=== PATIENT | female | born 1995 ===

== ENCOUNTER 2019-02-28 15:00 | Emergency (ER) | payer OTHER ==
[2019-02-28] MEDS ORDERED: Tetan/Diph/Pertus SYR(Tdap)* 0.5 ML SYR(BOOSTRIX) use SYR IM ONE (15:14)
--- NOTE | 2019-02-28 15:37 | ED ---
Laceration/Wound HPI - HPI Summary HPI Summary: This patient is a 23 year old female presenting to [facility] with a chief complaint of finger laceration one hour ago. The patient was connecting a trailer hitch to a truck when it closed down suddenly and pinched the distal pad of fourth digit on her left hand. The patient reports pain and laceration in this finger. She reports her pain 5/10 in severity. - History of Current Complaint Stated Complaint: LEFT FINGER LAC PER EMS Time Seen by Provider: 02/28/19 15:12 Hx Obtained From: Patient Mechanism of Injury: Sharp/Blunt Trauma Onset/Duration: Lasting Hours Aggravating: Movement Onset Severity: Moderate Current Severity: Moderate Pain Intensity: 5 Pain Scale Used: 0-10 Numeric Associated Signs & Symptoms: Negative - Allergy/Home Medications Allergies/Adverse Reactions: Allergies Allergy/AdvReac Type Severity Reaction Status Date / Time No Known Allergies Allergy Verified 02/28/19 15:04 PMH/Surg Hx/FS Hx/Imm Hx Endocrine/Hematology History: Denies: Hx Anticoagulant Therapy Cardiovascular History: Denies: Hx Coronary Artery Disease Respiratory History: Denies: Hx Asthma History: Denies: Hx Dialysis Sensory History: Denies: Hx Eye Prosthesis Opthamlomology History: Denies: Hx Legally Blind EENT History: Denies: Hx Deafness Neurological History: Denies: Hx Developmental Delay Psychiatric History: Denies: Hx Autism Infectious Disease History: No Infectious Disease History: Denies: Traveled Outside the [place] in Last 30 Days - Family History Known Family History: Positive: Non-Contributory - Social History Alcohol Use: Occasionally Substance Use Type: Reports: None Smoking Status (MU): Never Smoked Tobacco Review of Systems Constitutional: Negative Eyes: Negative ENT: Negative Cardiovascular: Negative Respiratory: Negative Gastrointestinal: Negative Genitourinary: Negative Positive: Other - 4th digit on left hand pain. Positive: Other - Laceration on fourth digit of left hand. Neurological: Negative Psychological: Normal All Other Systems Reviewed And Are Negative: Yes Physical Exam - Summary Physical Exam Summary: Degloving of the dorsal surface of the pad of the fourth digit of the left hand. Patient is neurovascularly intact distally. Flexion intact at each individual joint of this finger. Nail bed intact. Visible disturbance of the pulp. Triage Information Reviewed: Yes Vital Signs On Initial Exam: Initial Vitals Temp Pulse Resp BP Pulse Ox 96.8 F 74 16 127/81 100 02/28/19 15:02 02/28/19 15:02 02/28/19 15:02 02/28/19 15:02 02/28/19 15:02 Vital Signs Reviewed: Yes Appearance: Positive: Well-Appearing - Patient lying in bed comfortably in no pain distress. Friend present, No Pain Distress Skin: Positive: Warm, Dry Head/Face: Positive: Normal Head/Face Inspection Eyes: Positive: Normal, EOMI ENT: Positive: Normal ENT inspection Neck: Positive: Supple, Nontender Respiratory/Lung Sounds: Positive: Clear to Auscultation Cardiovascular: Positive: Normal Abdomen Description: Positive: Nontender Neurological: Positive: Normal, Sensory/Motor Intact Psychiatric: Positive: Normal, Affect/Mood Appropriate - Diane Coma Scale Best Eye Response: 4 - Spontaneous Best Motor Response: 6 - Obeys Commands Best Verbal Response: 5 - Oriented Coma Scale Total: 15 Procedures - Laceration/Wound Repair 1 Location: upper extremity Description: Irregular Anesthesia: Digital, 1.0% Length, Depth and Shape: 4cmx 2cm x 1cm Betadine Prep?: Yes Irrigated w/ Saline (ccs): 500 Laceration/Wound Explored: clean Debridement: minimal Number of Sutures: 14 - 4. 0 Ethilon. Layer Closure?: Yes - two deep sutures applied using 4. 0 Vicryl Diagnostics - Vital Signs Vital Signs Temp Pulse Resp BP Pulse Ox 02/28/19 15:02 96.8 F 74 16 127/81 100 - Laboratory Lab Statement: Any lab studies that have been ordered have been reviewed, and results considered in the medical decision making process. - Radiology Finger XR Radiology Interpretation Completed By: Radiologist Summary of Radiographic Findings: Negative for fracture or malalignment. Irregular soft tissue contour along the radial aspect consistent with provided history of laceration. Distal bandage limits assessment for potential foreign bodies. ED Provider has reviewed this report. Laceration Repair Course/Dx - Course Course Of Treatment: This patient is a 23 year old female presenting to [facility] with a chief complaint of finger laceration one hour ago. The patient was connecting a trailer hitch to a truck when it closed down suddenly and pinched the distal pad of fourth digit on her left hand. The patient reports pain and laceration in this finger. She reports her pain 5/10 in severity. Physical exam :Degloving of the dorsal surface of the pad of the fourth digit of the left hand. Patient is neurovascularly intact distally. Flexion intact at each individual joint of this finger. Nail bed intact. Visible disturbance of the pulp. Vital signs within normal limits. Rx for Keflex. Tetanus booster administered. - Clinical Impression Provider Diagnoses: Laceration Discharge - Sign-Out/Discharge Documenting (check all that apply): Patient Departure - Discharge Patient Received Moderate/Deep Sedation with Procedure: No - Discharge Plan Condition: Stable Disposition: HOME Prescriptions: Cephalexin CAP* [Keflex CAP*] 500 mg PO TID 5 Days #15 cap Patient Education Materials: Laceration (ED) Forms: *Work Release Referrals: Andrei Delgado MD [Medical Doctor] - Additional Instructions: Sutures out in 10 days. Starting tomorrow you may wash wound with warm running water and soap. Keep wound clean and dry. Cover with antibiotic ointment and nonstick bandage and then wrap. Keep protected and dry while working. Take antibiotics as directed. Return to the ED for any new or worsening symptoms. - Billing Disposition and Condition Condition: STABLE Disposition: Home - Attestation Statements Document Initiated by Tatyibe: Yes Documenting Scribe: Iván Butcher Provider For Whom Itz is Documenting (Include Credential): JONELLE Estrella Scribe Attestation: Iván Stearns, scribed for JONELLE Estrella on 03/01/19 at 0244. Scribe Documentation Reviewed: Yes Provider Attestation: The documentation as recorded by the Iván driscoll accurately reflects the service I personally performed and the decisions made by , JONELLE Estrella Status of Scribe Document: Viewed
[2019-02-28] MEDS ORDERED: oxyCODONE TAB* 5 MG TAB PO ONE (15:52)
[2019-02-28] MEDS ORDERED: oxyCODONE TAB* 5 MG TAB ONE (16:02)
[2019-02-28] MEDS ORDERED: Ibuprofen TAB* 400 MG PO ONE (17:06)
[2019-02-28] MEDS ORDERED: Bacitracin OINTMENT* 0.5% 0.5 oz TUBE ONE (17:42)
[2019-02-28] MEDS ORDERED: Bacitracin OINTMENT* 0.5% 0.5 oz TUBE TOPICAL SCH (18:00)
[2019-02-28] MEDS ORDERED: Cephalexin CAP* 500 MG PO ONE (18:04)
[2019-02-28 18:12] VITALS: BP 117/71
== END 2019-02-28 18:11 | disposition home or self-care (01) ==
LOC: ED 15:00
DX: S61.215A Laceration without foreign body of left ring finger without damage to nail, initial encounter (principal); W23.0XXA Caught, crushed, jammed, or pinched between moving objects, initial encounter; Z23 Encounter for immunization
CPT/HCPCS: 12002; 73140; 90471; 90715; 99284; A9270-GY